=== PATIENT | female | born 2000 | race Caucasian/White ===

== ENCOUNTER 2021-11-14 21:05 | Emergency (ER) | payer OTHER, BC ==
[~2021-11-14] VITALS: Ht 160 cm; Wt 42.6 kg
--- OUTSIDE RECORDS SUMMARY | 2021-11-14 21:08 | XMS ---
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 Tessie has no Care Guidelines for this patient. Jyoti VISIT COUNT (12 MO.) 1 STEVE Mancia TOTAL 1 NOTE: Visits indicate total known visits. ED/C VISIT TRACKING (12 MO.) 11/14/2021 21:06 STEVE [facility] [place] TYPE: Emergency COMPLAINT: - FINGER INJURY INPATIENT VISIT TRACKING (12 MO.) No inpatient visits to display in this time frame [email or web address]
[2021-11-14] MEDS ORDERED: SERTRALINE HCL25 MG PO (21:34)
== END 2021-11-15 00:01 | disposition home or self-care (01) ==
LOC: ED 21:05
DX: S63.614A Unspecified sprain of right ring finger, initial encounter (principal); Z79.899 Other long term (current) drug therapy; X50.1XXA Overexertion from prolonged static or awkward postures, initial encounter
CPT/HCPCS: 73140; 99283-25